=== PATIENT | female | born 1945 | race Caucasian/White ===

== ENCOUNTER 2021-11-04 15:57 | Observation (INO) ==
[2021-11-04 19:23] LABS: Basophils % 0.5 %; Eosinophils # 0.1 K/mcL (0.0-0.6); Eosinophils % 1.5 %; Hematocrit 42.5 % (35.3-44.9); Hemoglobin 14.4 g/dL (11.5-15.4); Immature Granulocytes % 0.2 % (0-4); Lymphocytes % 23.5 %; Mean Corpuscular HGB Conc 33.9 g/dL (31.6-35.5); Mean Corpuscular Hemoglobin 32.9 pg (28.0-33.3); Mean Platelet Volume 10.3 fL (9.4-12.4); Monocytes # 0.6 K/mcL (0.0-1.3); Monocytes % 7.3 %; Neutrophils # 5.7 K/mcL (1.6-8.9); Platelet Count 318 K/mcL (140-400); Red Blood Count 4.38 M/mcL (3.82-4.97); Red Cell Distribution Width 12.5 % (11.5-14.5); White Blood Count 8.5 K/mcL (4.3-11.1)
[2021-11-04 19:44] LABS: Calcium 10.2 mg/dL (8.6-10.3); Potassium 4.2 mEq/L (3.5-5.1)
[2021-11-04] MEDS ORDERED: Ketorolac 30 MG/ML VIAL IVP ONE (21:53)
[2021-11-04] MEDS ORDERED: 0.9 % Sodium Chloride 1,000 ML IVC ONE (22:52)
[2021-11-04] MEDS ORDERED: Iopamidol - 370 500 ML MLS IVP ONE (23:25)
[2021-11-05 02:49] LABS: Bacteria,Urine Few per hpf (None-Few); Bilirubin,Urine Negative (Negative); Blood,Urine Negative (Negative); Clarity,Urine Clear (Clear); Color,Urine Yellow (Yellow); Glucose,Urine (UA) Normal (Normal); Hyaline Casts,Urine Few per lpf (None Seen); Ketones,Urine Negative (Negative); Leukocyte Esterase,Urine Negative (Negative); Mucus,Urine Few per lpf (None-Few); Nitrite,Urine Positive (Negative); Protein,Urine Trace mg/dL (Neg-Trace); RBC,Urine 0-3 per hpf (0-3); Specific Gravity,Urine > 1.030 (1.010-1.025); Squamous Epithelial Cell,Urine Moderate per hpf (None-Few); Urobilinogen,Urine Normal (Normal)
[2021-11-05] MEDS ORDERED: Ondansetron 4 MG/2 ML VIAL IVP PRN (05:18)
[2021-11-05] MEDS ORDERED: Naloxone 0.4 MG/ML INJ IVP PRN (05:18)
[2021-11-05] MEDS: 0.9 % Sodium Chloride 1,000 ML IVC SCH ×2 (05:48→09:39)
[2021-11-05] MEDS ORDERED: Ketorolac 30 MG/ML VIAL IVP PRN (06:00)
[2021-11-05] MEDS ORDERED: Acetaminophen 325 MG TABLET PO PRN (11:35)
[2021-11-05] MEDS: Nicotine 14 MG PATCH.TD24 TD SCH (12:29)
[2021-11-05] MEDS: levoFLOXacin 750 MG/150 ML 750 MG/150 ML BAG IVPB SCH (17:12)
[2021-11-06 06:27] LABS: Adenovirus F 40/41 PCR Not detected (Not detect); Astrovirus PCR Not detected (Not detect); C.difficile Toxin A/B Gene PCR Not detected (Not detect); Campylobacter by PCR Not detected (Not detect); Cryptosporidium by PCR Not detected (Not detect); Cyclospora cayetanensis PCR Not detected (Not detect); E. coli O157 by PCR Not detected (Not detect); Entamoeba histolytica PCR Not detected (Not detect); Enteroaggregative E.coli(EAEC) Not detected (Not detect); Enteropathogenic E.coli(EPEC) Not detected (Not detect); Enterotoxigenic E.coli (ETEC) Not detected (Not detect); Giardia lamblia PCR Not detected (Not detect); Norovirus GI/GII PCR Not detected (Not detect); Plesiomonas shigelloides PCR Not detected (Not detect); Rotavirus A PCR Not detected (Not detect); Salmonella PCR Not detected (Not detect); Sapovirus PCR Not detected (Not detect); Shig/EnteroinvasiveE coli EIEC Not detected (Not detect); Shigalike tox-prod E coli STEC Not detected (Not detect); Vibrio PCR Not detected (Not detect); Vibrio cholerae PCR Not detected (Not detect); Yersinia enterocolitica PCR Not detected (Not detect)
[2021-11-06] MEDS ORDERED: *HR* Enoxaparin 40 MG/0.4 ML SYRINGE SQ SCH (07:00)
[2021-11-06] MEDS: Nicotine 14 MG PATCH.TD24 TD SCH (08:06)
[2021-11-06] MEDS: levoFLOXacin 750 MG/150 ML 750 MG/150 ML BAG IVPB SCH (08:07)
[2021-11-06 08:12] VITALS: BP 149/90; PULSE 88; TEMP 98.7; O2SAT 98
== END 2021-11-06 12:13 | disposition home or self-care (01) ==
LOC: EMEROOARM 15:57 → 3ANU 15:57 → SUATTDRO 11-05 05:46 → 3ANU 11-05 06:24
PROVIDERS: ADMIT Student in an Organized Health Care Education/Training Program; ATTEND Pharmacist

== ENCOUNTER 2021-11-21 14:16 | Inpatient (IN) ==
[2021-11-21 16:44] LABS: Basophils % 0.5 %; Eosinophils # 0.1 K/mcL (0.0-0.6); Eosinophils % 1.5 %; Hematocrit 39.3 % (35.3-44.9); Hemoglobin 12.9 g/dL (11.5-15.4); Immature Granulocytes % 0.2 % (0-4); Lymphocytes # 1.8 K/mcL (0.6-4.6); Mean Corpuscular HGB Conc 32.8 g/dL (31.6-35.5); Mean Corpuscular Hemoglobin 32.3 pg (28.0-33.3); Mean Corpuscular Volume 98.3 fL (83.0-100.0); Mean Platelet Volume 9.9 fL (9.4-12.4); Monocytes # 0.5 K/mcL (0.0-1.3); Neutrophils # 4.1 K/mcL (1.6-8.9); Platelet Count 376 K/mcL (140-400); Red Cell Distribution Width 12.7 % (11.5-14.5); Segmented Neutrophils % 62.8 %; White Blood Count 6.5 K/mcL (4.3-11.1)
[2021-11-21 16:45] LABS: Alanine Aminotransferase 6 Units/L (7-52); Albumin 3.6 g/dL (3.5-5.7); Albumin/Globulin Ratio 1.3 (1.1-2.2); Alkaline Phosphatase 99 Units/L (34-104); Amylase 20 Units/L (29-103); Aspartate Amino Transferase 10 Units/L (13-39); BUN/Creatinine Ratio 27 (6-26); Bilirubin,Direct 0.1 mg/dL (0.0-0.2); Bilirubin,Indirect 0.3 mg/dL (0.0-1.0); Bilirubin,Total 0.4 mg/dL (0.3-1.0); Blood Urea Nitrogen 16 mg/dL (8-23); Calcium 9.3 mg/dL (8.6-10.3); Carbon Dioxide 30 mEq/L (23-29); Chloride 103 mEq/L (98-107); Globulin 2.7 g/dL (2.4-3.5); Glucose 99 mg/dL (70-105); Lipase 16 Units/L (11-82); Osmolality,Calculated 285 (280-300); Potassium 3.8 mEq/L (3.5-5.1); Sodium 137 mEq/L (136-145); Total Protein 6.3 g/dL (6.4-8.9)
[2021-11-21 16:46] LABS: Bacteria,Urine Few per hpf (None-Few); Mucus,Urine Few per lpf (None-Few); RBC,Urine 0-3 per hpf (0-3); Squamous Epithelial Cell,Urine Few per hpf (None-Few); WBC,Urine 0-3 per hpf (0-3)
[2021-11-21 17:11] LABS: Bilirubin,Urine Negative (Negative); Blood,Urine Negative (Negative); Clarity,Urine Clear (Clear); Color,Urine Yellow (Yellow); Glucose,Urine (UA) Normal (Normal); Ketones,Urine Negative (Negative); Leukocyte Esterase,Urine Negative (Negative); Nitrite,Urine Negative (Negative); PH,Urine 5.5 pH Units (5.0-8.0); Protein,Urine Trace mg/dL (Neg-Trace); Specific Gravity,Urine 1.024 (1.010-1.025)
[2021-11-21] MEDS ORDERED: 0.9 % Sodium Chloride 1,000 ML IVC ONE (18:47)
[2021-11-21] MEDS ORDERED: Iopamidol - 370 500 ML MLS IVP ONE (18:47)
[2021-11-21] MEDS ORDERED: Ondansetron 4 MG/2 ML VIAL IVP ONE (18:57)
[2021-11-21] MEDS ORDERED: Piperacillin/Tazobactam 3.375 GM in 0.9 % Sodium Chloride Mini Bag 100 ML IVPB ONE (21:39)
[2021-11-21] MEDS ORDERED: *HR* FentaNYL (PF) 100 MCG/2 ML VIAL IVP ONE (21:40)
[2021-11-21] MEDS ORDERED: Acetaminophen 325 MG TABLET PO PRN (23:45)
[2021-11-21] MEDS ORDERED: Ondansetron 4 MG/2 ML VIAL IVP PRN (23:45)
[2021-11-21] MEDS ORDERED: Naloxone 0.4 MG/ML INJ IVP PRN (23:45)
[2021-11-22] MEDS: 0.9 % Sodium Chloride 1,000 ML IVC SCH (02:44)
[2021-11-22 03:11] LABS: Adenovirus F 40/41 PCR Not detected (Not detect); Astrovirus PCR Not detected (Not detect); C.difficile Toxin A/B Gene PCR Not detected (Not detect); Campylobacter by PCR Not detected (Not detect); Cryptosporidium by PCR Not detected (Not detect); Cyclospora cayetanensis PCR Not detected (Not detect); Entamoeba histolytica PCR Not detected (Not detect); Enteroaggregative E.coli(EAEC) Not detected (Not detect); Enteropathogenic E.coli(EPEC) Not detected (Not detect); Enterotoxigenic E.coli (ETEC) Not detected (Not detect); Giardia lamblia PCR Not detected (Not detect); Norovirus GI/GII PCR Not detected (Not detect); Plesiomonas shigelloides PCR Not detected (Not detect); Rotavirus A PCR Not detected (Not detect); Salmonella PCR Not detected (Not detect); Sapovirus PCR Not detected (Not detect); Shig/EnteroinvasiveE coli EIEC Not detected (Not detect); Shigalike tox-prod E coli STEC Not detected (Not detect); Vibrio PCR Not detected (Not detect); Vibrio cholerae PCR Not detected (Not detect); Yersinia enterocolitica PCR Not detected (Not detect)
[2021-11-22 05:32] LABS: Hematocrit 35.2 % (35.3-44.9); Hemoglobin 11.5 g/dL (11.5-15.4); Mean Corpuscular HGB Conc 32.7 g/dL (31.6-35.5); Mean Corpuscular Hemoglobin 31.7 pg (28.0-33.3); Mean Platelet Volume 9.4 fL (9.4-12.4); Platelet Count 325 K/mcL (140-400); Red Blood Count 3.63 M/mcL (3.82-4.97); Red Cell Distribution Width 12.7 % (11.5-14.5)
[2021-11-22 06:09] LABS: BUN/Creatinine Ratio 27 (6-26); Blood Urea Nitrogen 14 mg/dL (8-23); Calcium 8.9 mg/dL (8.6-10.3); Carbon Dioxide 26 mEq/L (23-29); Chloride 107 mEq/L (98-107); Glucose 89 mg/dL (70-105); Osmolality,Calculated 288 (280-300); Potassium 3.7 mEq/L (3.5-5.1); Sodium 139 mEq/L (136-145)
[2021-11-22] MEDS ORDERED: Piperacillin/Tazobactam 3.375 GM in 0.9 % Sodium Chloride Mini Bag 100 ML IVPB SCH (08:00)
[2021-11-22] MEDS ORDERED: *HR* Propofol 200 MG/20 ML VIAL IVP ONE ×2 (08:47→08:48)
[2021-11-22] MEDS ORDERED: *HR* FentaNYL (PF) 100 MCG/2 ML VIAL ONE (08:48)
[2021-11-22] MEDS ORDERED: Lidocaine HCL 4 ML Topical Solution (Laryng-O-Jet Kit Sterile Pak) TP ONE (08:52)
[2021-11-22] MEDS ORDERED: *HR* Rocuronium Bromide 50 MG/5 ML VIAL ONE ×3 (08:52→11:28)
[2021-11-22] MEDS ORDERED: Lidocaine -MPF 2% 5 ML VIAL ONE (08:52)
[2021-11-22] MEDS ORDERED: Ondansetron 4 MG/2 ML VIAL ONE (09:53)
[2021-11-22] MEDS ORDERED: Acetaminophen IV 1,000 MG/100 ML BAG IVPB ONE (09:54)
[2021-11-22] MEDS ORDERED: *HR* Labetalol 20 MG/4 ML SYRINGE IVP ONE ×2 (10:02→13:35)
[2021-11-22] MEDS ORDERED: Ketamine HCL *QUVA* 50mg (1mL) SYRINGE ONE (10:14)
[2021-11-22] MEDS ORDERED: *HR* HYDROMORPHONE 2 MG/ML VIAL ONE (12:02)
[2021-11-22] MEDS ORDERED: *HR* Nalbuphine 10 MG/ML AMPUL ONE (13:03)
[2021-11-22] MEDS: *HR* Labetalol 20 MG/4 ML SYRINGE IVP PRN ×3 (13:37→16:49)
[2021-11-22] MEDS ORDERED: Acetaminophen 325 MG TABLET PO PRN (14:43)
[2021-11-22] MEDS ORDERED: Naloxone 0.4 MG/ML INJ IVP PRN (14:43)
[2021-11-22] MEDS ORDERED: 0.9 % Sodium Chloride 1,000 ML IVC SCH (14:43)
[2021-11-22] MEDS: Piperacillin/Tazobactam 3.375 GM in 0.9 % Sodium Chloride Mini Bag 100 ML IVPB SCH (16:31)
[2021-11-22] MEDS: Acetaminophen IV 1,000 MG/100 ML BAG IVPB SCH (18:11)
[2021-11-22] MEDS: *HR* HYDROmorphone (PF) 1 MG/ML SYRINGE IVP PRN (20:21)
[2021-11-23] MEDS: Piperacillin/Tazobactam 3.375 GM in 0.9 % Sodium Chloride Mini Bag 100 ML IVPB SCH ×3 (00:19→15:21)
[2021-11-23] MEDS: Acetaminophen IV 1,000 MG/100 ML BAG IVPB SCH ×4 (00:19→17:12)
[2021-11-23] MEDS: *HR* Labetalol 20 MG/4 ML SYRINGE IVP PRN (01:57)
[2021-11-23 04:36] LABS: Basophils % 0.1 %; Hematocrit 35.3 % (35.3-44.9); Hemoglobin 11.8 g/dL (11.5-15.4); Immature Granulocytes % 0.1 % (0-4); Lymphocytes # 0.7 K/mcL (0.6-4.6); Lymphocytes % 7.2 %; Mean Corpuscular HGB Conc 33.4 g/dL (31.6-35.5); Mean Corpuscular Hemoglobin 32.1 pg (28.0-33.3); Mean Corpuscular Volume 95.9 fL (83.0-100.0); Mean Platelet Volume 9.6 fL (9.4-12.4); Monocytes # 0.5 K/mcL (0.0-1.3); Monocytes % 4.7 %; Platelet Count 326 K/mcL (140-400); Red Blood Count 3.68 M/mcL (3.82-4.97); Red Cell Distribution Width 12.5 % (11.5-14.5); Segmented Neutrophils % 87.9 %
[2021-11-23 04:37] LABS: White Blood Count 10.2 K/mcL (4.3-11.1)
[2021-11-23 04:58] LABS: BUN/Creatinine Ratio 24 (6-26); Blood Urea Nitrogen 12 mg/dL (8-23); Calcium 7.8 mg/dL (8.6-10.3); Carbon Dioxide 23 mEq/L (23-29); Chloride 105 mEq/L (98-107); Glucose 132 mg/dL (70-105); Osmolality,Calculated 292 (280-300); Potassium 3.5 mEq/L (3.5-5.1); Sodium 140 mEq/L (136-145)
[2021-11-23] MEDS: Ondansetron 4 MG/2 ML VIAL IVP PRN ×2 (06:29→16:42)
[2021-11-23] MEDS: *HR* HYDROmorphone (PF) 1 MG/ML SYRINGE IVP PRN ×4 (06:30→16:28)
[2021-11-23] MEDS ORDERED: D5% in Water 1,000 ML IVC PRN (06:56)
[2021-11-23] MEDS ORDERED: *HR* Dextrose 50 % in Water (Syg) 50 ML SYRINGE IVP PRN (06:56)
[2021-11-23] MEDS ORDERED: Dextrose Gel 15 GM/37.5 ML TUBE PO PRN ×2 (06:56)
[2021-11-23] MEDS ORDERED: Lidocaine -MPF 1% 5 ML AMPUL INFILT ONE (06:56)
[2021-11-23] MEDS ORDERED: Saliva Stimulant 44.3ml BOTTLE PO PRN (06:58)
[2021-11-23] MEDS ORDERED: Chloraseptic Spray 177 ML BOTTLE MM PRN (06:58)
[2021-11-23] MEDS ORDERED: 0.9 % Sodium Chloride 1,000 ML IVC SCH (07:00)
[2021-11-23] MEDS: 0.9 % Sodium Chloride 1,000 ML IVC SCH ×3 (07:36→17:14)
[2021-11-23] MEDS: Insulin LISPRO 300 UNITS/3 ML VIAL SUBQ SCH ×4 (07:43→20:13)
[2021-11-23 07:50] LABS: INR 1.3; Prothrombin Time 14.5 Seconds (9.4-12.1)
[2021-11-23 07:52] LABS: Activated Partial Thrombo Time 29.5 Seconds (26.0-36.0)
[2021-11-23 08:01] LABS: Magnesium 1.5 mg/dL (1.6-2.6); Phosphorous 3.2 mg/dL (2.7-4.5)
[2021-11-23] MEDS: Calcium Gluconate 1gm/50mL 1 GM/50 ML BAG IVPB SCH ×2 (08:32→09:13)
[2021-11-23] MEDS: *HR* Heparin 5,000 UNIT/ML VIAL SQ SCH ×2 (10:11→17:13)
[2021-11-23] MEDS: Pantoprazole 40 MG VIAL IVP SCH (10:12)
[2021-11-23] MEDS ORDERED: D10% in Water 500 ML IVC PRN (10:49)
[2021-11-23] MEDS: Ketorolac 30 MG/ML VIAL IVP SCH ×2 (12:42→17:14)
[2021-11-23] MEDS: Nicotine 21 MG PATCH.TD24 TD SCH (15:21)
[2021-11-23] MEDS: Fat Emulsion 250 ML IVPB SCH (16:29)
[2021-11-23] MEDS ORDERED: Clinimix E 5%-15% SOLUTION 2,000 ML with MVI, adult with vitamin K 10 ML IVC SCH (17:00)
[2021-11-23] MEDS ORDERED: *HR* Metoprolol 5 MG/5 ML VIAL IVP ONE (22:09)
[2021-11-24] MEDS: Ketorolac 30 MG/ML VIAL IVP SCH ×5 (00:17→23:30)
[2021-11-24] MEDS: Acetaminophen IV 1,000 MG/100 ML BAG IVPB SCH ×5 (00:26→23:40)
[2021-11-24] MEDS: Piperacillin/Tazobactam 3.375 GM in 0.9 % Sodium Chloride Mini Bag 100 ML IVPB SCH ×4 (00:47→23:39)
[2021-11-24] MEDS: Insulin LISPRO 300 UNITS/3 ML VIAL SUBQ SCH ×6 (00:49→20:53)
[2021-11-24] MEDS: 0.9 % Sodium Chloride 1,000 ML IVC SCH (02:28)
[2021-11-24] MEDS: *HR* Heparin 5,000 UNIT/ML VIAL SQ SCH ×2 (06:20→17:35)
[2021-11-24] MEDS: Ondansetron 4 MG/2 ML VIAL IVP PRN ×2 (06:29→16:37)
[2021-11-24 06:59] LABS: Basophils % 0.1 %; Hematocrit 32.8 % (35.3-44.9); Hemoglobin 10.8 g/dL (11.5-15.4); Immature Granulocytes % 0.8 % (0-4); Lymphocytes # 1.2 K/mcL (0.6-4.6); Lymphocytes % 8.1 %; Mean Corpuscular HGB Conc 32.9 g/dL (31.6-35.5); Mean Corpuscular Hemoglobin 32.2 pg (28.0-33.3); Mean Corpuscular Volume 97.9 fL (83.0-100.0); Mean Platelet Volume 10.2 fL (9.4-12.4); Monocytes # 0.7 K/mcL (0.0-1.3); Monocytes % 4.6 %; Neutrophils # 12.3 K/mcL (1.6-8.9); Platelet Count 331 K/mcL (140-400); Red Blood Count 3.35 M/mcL (3.82-4.97); Red Cell Distribution Width 12.9 % (11.5-14.5); Segmented Neutrophils % 86.4 %; White Blood Count 14.2 K/mcL (4.3-11.1)
[2021-11-24 07:18] LABS: Alanine Aminotransferase 10 Units/L (7-52); Albumin 2.6 g/dL (3.5-5.7); Albumin/Globulin Ratio 1.1 (1.1-2.2); Alkaline Phosphatase 69 Units/L (34-104); Aspartate Amino Transferase 17 Units/L (13-39); BUN/Creatinine Ratio 38 (6-26); Bilirubin,Total 0.9 mg/dL (0.3-1.0); Blood Urea Nitrogen 18 mg/dL (8-23); Calcium 8.8 mg/dL (8.6-10.3); Carbon Dioxide 26 mEq/L (23-29); Chloride 104 mEq/L (98-107); Globulin 2.3 g/dL (2.4-3.5); Glucose 118 mg/dL (70-105); Magnesium 1.8 mg/dL (1.6-2.6); Osmolality,Calculated 279 (280-300); Potassium 3.5 mEq/L (3.5-5.1); Sodium 133 mEq/L (136-145); Total Protein 4.9 g/dL (6.4-8.9)
[2021-11-24] MEDS ORDERED: SODIUM PHOSPHATE IVPB ONE ×2 (07:25→07:47)
[2021-11-24] MEDS ORDERED: SODIUM CHLORIDE 0.9% IVPB ONE ×2 (07:25→07:47)
[2021-11-24] MEDS: *HR* Metoprolol 5 MG/5 ML VIAL IVP SCH ×4 (08:31→23:31)
[2021-11-24] MEDS ORDERED: Furosemide 40 MG/4 ML VIAL IVP ONE (08:33)
[2021-11-24] MEDS: Pantoprazole 40 MG VIAL IVP SCH (08:33)
[2021-11-24] MEDS: Nicotine 21 MG PATCH.TD24 TD SCH (08:33)
[2021-11-24] MEDS ORDERED: Fluconazole 400 MG/200 ML 400 MG/200 ML BAG IVPB ONE (08:57)
[2021-11-24] MEDS ORDERED: Clinimix E 5%-15% SOLUTION 2,000 ML with MVI, adult with vitamin K 10 ML IVC SCH (17:00)
[2021-11-24] MEDS: Fat Emulsion 250 ML IVPB SCH (18:07)
[2021-11-25 03:42] LABS: Basophils % 0.1 %; Eosinophils % 0.4 %; Hematocrit 24.8 % (35.3-44.9); Immature Granulocytes % 0.4 % (0-4); Lymphocytes # 1.1 K/mcL (0.6-4.6); Lymphocytes % 9.5 %; Mean Corpuscular HGB Conc 33.9 g/dL (31.6-35.5); Mean Corpuscular Hemoglobin 32.8 pg (28.0-33.3); Mean Corpuscular Volume 96.9 fL (83.0-100.0); Mean Platelet Volume 10.3 fL (9.4-12.4); Monocytes # 0.4 K/mcL (0.0-1.3); Monocytes % 3.6 %; Neutrophils # 9.6 K/mcL (1.6-8.9); Platelet Count 243 K/mcL (140-400); Red Blood Count 2.56 M/mcL (3.82-4.97); Red Cell Distribution Width 13.1 % (11.5-14.5); White Blood Count 11.2 K/mcL (4.3-11.1)
[2021-11-25 03:46] LABS: Hemoglobin 8.4 g/dL (11.5-15.4)
[2021-11-25 04:12] LABS: Alanine Aminotransferase 9 Units/L (7-52); Albumin 2.3 g/dL (3.5-5.7); Albumin/Globulin Ratio 1.1 (1.1-2.2); Alkaline Phosphatase 58 Units/L (34-104); Aspartate Amino Transferase 13 Units/L (13-39); BUN/Creatinine Ratio 50 (6-26); Bilirubin,Total 0.8 mg/dL (0.3-1.0); Blood Urea Nitrogen 24 mg/dL (8-23); Calcium 8.5 mg/dL (8.6-10.3); Carbon Dioxide 28 mEq/L (23-29); Chloride 105 mEq/L (98-107); Globulin 2.1 g/dL (2.4-3.5); Glucose 125 mg/dL (70-105); Magnesium 1.8 mg/dL (1.6-2.6); Osmolality,Calculated 290 (280-300); Phosphorous 2.4 mg/dL (2.7-4.5); Potassium 2.9 mEq/L (3.5-5.1); Sodium 137 mEq/L (136-145); Total Protein 4.4 g/dL (6.4-8.9)
[2021-11-25] MEDS: Insulin LISPRO 300 UNITS/3 ML VIAL SUBQ SCH ×6 (04:15→20:21)
[2021-11-25] MEDS: Acetaminophen IV 1,000 MG/100 ML BAG IVPB SCH ×3 (06:23→18:34)
[2021-11-25] MEDS: Ketorolac 30 MG/ML VIAL IVP SCH ×3 (06:24→18:35)
[2021-11-25] MEDS: *HR* Metoprolol 5 MG/5 ML VIAL IVP SCH ×3 (06:25→18:34)
[2021-11-25] MEDS: *HR* Heparin 5,000 UNIT/ML VIAL SQ SCH ×2 (06:25→18:33)
[2021-11-25] MEDS: Calcium Gluconate 1gm/50mL 1 GM/50 ML BAG IVPB SCH ×3 (08:20→13:11)
[2021-11-25] MEDS: Fluconazole 200 MG/100 ML 200 MG/100 ML BAG IVPB SCH (10:54)
[2021-11-25] MEDS ORDERED: Calcium Gluconate 1gm/50mL 1 GM/50 ML BAG IVPB SCH (11:00)
[2021-11-25] MEDS: Pantoprazole 40 MG VIAL IVP SCH (11:09)
[2021-11-25] MEDS: Piperacillin/Tazobactam 3.375 GM in 0.9 % Sodium Chloride Mini Bag 100 ML IVPB SCH ×2 (11:10→18:05)
[2021-11-25] MEDS: Nicotine 21 MG PATCH.TD24 TD SCH (11:11)
[2021-11-25] MEDS: Gabapentin 100 MG CAPSULE PO SCH ×3 (11:12→21:22)
[2021-11-25] MEDS ORDERED: Clinimix E 5%-15% SOLUTION 2,000 ML with MVI, adult with vitamin K 10 ML IVC SCH (17:00)
[2021-11-25] MEDS ORDERED: Clinimix E 5%-20% SOLUTION 2,000 ML, Amino Acids 10% 0 ML with MVI, adult with vitami... IVC SCH (17:00)
[2021-11-25] MEDS: Fat Emulsion 250 ML IVPB SCH (17:04)
[2021-11-25] MEDS: Ondansetron 4 MG/2 ML VIAL IVP PRN (17:23)
[2021-11-25 18:26] LABS: Hemoglobin 8.3 g/dL (11.5-15.4)
[2021-11-26] MEDS: Ketorolac 30 MG/ML VIAL IVP SCH ×3 (00:23→11:20)
[2021-11-26] MEDS: *HR* Metoprolol 5 MG/5 ML VIAL IVP SCH ×4 (00:24→18:02)
[2021-11-26] MEDS: Insulin LISPRO 300 UNITS/3 ML VIAL SUBQ SCH ×5 (00:25→17:41)
[2021-11-26] MEDS: Piperacillin/Tazobactam 3.375 GM in 0.9 % Sodium Chloride Mini Bag 100 ML IVPB SCH ×3 (00:25→17:39)
[2021-11-26] MEDS: Acetaminophen IV 1,000 MG/100 ML BAG IVPB SCH ×4 (01:01→18:34)
[2021-11-26 04:11] LABS: Basophils % 0.3 %; Eosinophils # 0.5 K/mcL (0.0-0.6); Eosinophils % 5.2 %; Hematocrit 24.4 % (35.3-44.9); Hemoglobin 7.9 g/dL (11.5-15.4); Immature Granulocytes % 0.5 % (0-4); Lymphocytes # 1.2 K/mcL (0.6-4.6); Lymphocytes % 11.9 %; Mean Corpuscular HGB Conc 32.4 g/dL (31.6-35.5); Mean Corpuscular Hemoglobin 31.9 pg (28.0-33.3); Mean Corpuscular Volume 98.4 fL (83.0-100.0); Mean Platelet Volume 10.1 fL (9.4-12.4); Monocytes # 0.6 K/mcL (0.0-1.3); Monocytes % 5.4 %; Neutrophils # 7.8 K/mcL (1.6-8.9); Platelet Count 248 K/mcL (140-400); Red Blood Count 2.48 M/mcL (3.82-4.97); Red Cell Distribution Width 13.2 % (11.5-14.5); Segmented Neutrophils % 76.7 %; White Blood Count 10.2 K/mcL (4.3-11.1)
[2021-11-26 04:30] LABS: Alanine Aminotransferase 8 Units/L (7-52); Albumin 2.2 g/dL (3.5-5.7); Alkaline Phosphatase 64 Units/L (34-104); Aspartate Amino Transferase 11 Units/L (13-39); BUN/Creatinine Ratio 51 (6-26); Bilirubin,Total 0.7 mg/dL (0.3-1.0); Blood Urea Nitrogen 24 mg/dL (8-23); Calcium 8.8 mg/dL (8.6-10.3); Carbon Dioxide 30 mEq/L (23-29); Chloride 103 mEq/L (98-107); Globulin 2.3 g/dL (2.4-3.5); Glucose 106 mg/dL (70-105); Magnesium 1.8 mg/dL (1.6-2.6); Osmolality,Calculated 286 (280-300); Phosphorous 2.5 mg/dL (2.7-4.5); Potassium 3.2 mEq/L (3.5-5.1); Sodium 136 mEq/L (136-145); Total Protein 4.5 g/dL (6.4-8.9)
[2021-11-26] MEDS: *HR* Heparin 5,000 UNIT/ML VIAL SQ SCH ×2 (05:15→17:59)
[2021-11-26] MEDS: Pantoprazole 40 MG VIAL IVP SCH (07:52)
[2021-11-26] MEDS: Gabapentin 100 MG CAPSULE PO SCH ×3 (07:53→20:35)
[2021-11-26] MEDS: Nicotine 21 MG PATCH.TD24 TD SCH (09:11)
[2021-11-26] MEDS: Fluconazole 200 MG/100 ML 200 MG/100 ML BAG IVPB SCH (09:14)
[2021-11-26] MEDS ORDERED: Potassium Phosphate 44 MEQ in 0.9 % Sodium Chloride 250 ML IVPB ONE (10:41)
[2021-11-26] MEDS ORDERED: Clinimix E 5%-20% SOLUTION 2,000 ML, Amino Acids 10% 0 ML with MVI, adult with vitami... IVC SCH (17:00)
[2021-11-26] MEDS ORDERED: Clinimix E 5%-15% SOLUTION 2,000 ML with MVI, adult with vitamin K 10 ML IVC SCH (17:00)
[2021-11-26] MEDS: Fat Emulsion 250 ML IVPB SCH (17:44)
[2021-11-26 18:53] LABS: Ferritin 139 ng/mL (10-120); Iron < 10 mcg/dL (50-170); Transferrin 120 mg/dL (203-362)
[2021-11-26 19:00] LABS: Folate > 22.3 ng/mL (3.0-16.0); Vitamin B12 534 pg/mL (250-1100)
[2021-11-27] MEDS: Insulin LISPRO 300 UNITS/3 ML VIAL SUBQ SCH ×8 (00:41→23:49)
[2021-11-27] MEDS: Acetaminophen IV 1,000 MG/100 ML BAG IVPB SCH ×2 (01:08→11:57)
[2021-11-27] MEDS: Piperacillin/Tazobactam 3.375 GM in 0.9 % Sodium Chloride Mini Bag 100 ML IVPB SCH ×4 (01:09→23:55)
[2021-11-27] MEDS: *HR* Metoprolol 5 MG/5 ML VIAL IVP SCH ×5 (01:14→23:50)
[2021-11-27 05:47] LABS: Basophils % 0.3 %; Eosinophils # 0.3 K/mcL (0.0-0.6); Eosinophils % 4.2 %; Hematocrit 26.1 % (35.3-44.9); Hemoglobin 8.2 g/dL (11.5-15.4); Immature Granulocytes % 0.6 % (0-4); Lymphocytes # 0.9 K/mcL (0.6-4.6); Mean Corpuscular HGB Conc 31.4 g/dL (31.6-35.5); Mean Corpuscular Hemoglobin 31.1 pg (28.0-33.3); Mean Corpuscular Volume 98.9 fL (83.0-100.0); Mean Platelet Volume 9.9 fL (9.4-12.4); Monocytes # 0.5 K/mcL (0.0-1.3); Monocytes % 6.7 %; Neutrophils # 5.4 K/mcL (1.6-8.9); Platelet Count 258 K/mcL (140-400); Red Blood Count 2.64 M/mcL (3.82-4.97); Red Cell Distribution Width 13.1 % (11.5-14.5); Segmented Neutrophils % 75.2 %; White Blood Count 7.2 K/mcL (4.3-11.1)
[2021-11-27 06:03] LABS: BUN/Creatinine Ratio 49 (6-26); Blood Urea Nitrogen 19 mg/dL (8-23); Calcium 8.8 mg/dL (8.6-10.3); Carbon Dioxide 30 mEq/L (23-29); Chloride 103 mEq/L (98-107); Glucose 130 mg/dL (70-105); Magnesium 1.8 mg/dL (1.6-2.6); Osmolality,Calculated 284 (280-300); Phosphorous 2.9 mg/dL (2.7-4.5); Potassium 3.6 mEq/L (3.5-5.1); Sodium 135 mEq/L (136-145)
[2021-11-27 06:04] LABS: Alanine Aminotransferase 9 Units/L (7-52); Albumin 2.4 g/dL (3.5-5.7); Albumin/Globulin Ratio 0.9 (1.1-2.2); Alkaline Phosphatase 105 Units/L (34-104); Aspartate Amino Transferase 13 Units/L (13-39); BUN/Creatinine Ratio 49 (6-26); Bilirubin,Total 0.6 mg/dL (0.3-1.0); Blood Urea Nitrogen 19 mg/dL (8-23); Calcium 8.8 mg/dL (8.6-10.3); Carbon Dioxide 29 mEq/L (23-29); Chloride 103 mEq/L (98-107); Globulin 2.6 g/dL (2.4-3.5); Glucose 126 mg/dL (70-105); Osmolality,Calculated 284 (280-300); Potassium 3.7 mEq/L (3.5-5.1); Sodium 135 mEq/L (136-145)
[2021-11-27] MEDS: *HR* Heparin 5,000 UNIT/ML VIAL SQ SCH ×2 (06:46→18:07)
[2021-11-27] MEDS ORDERED: Acetaminophen 325 MG TABLET PO PRN (08:14)
[2021-11-27] MEDS: Gabapentin 100 MG CAPSULE PO SCH ×3 (09:06→21:29)
[2021-11-27] MEDS: Pantoprazole 40 MG VIAL IVP SCH (09:07)
[2021-11-27] MEDS: Nicotine 21 MG PATCH.TD24 TD SCH (09:09)
[2021-11-27] MEDS: Fluconazole 200 MG/100 ML 200 MG/100 ML BAG IVPB SCH (09:52)
[2021-11-27] MEDS: *HR* Promethazine 25 MG/ML VIAL IM PRN (10:17)
[2021-11-27] MEDS ORDERED: *HR* Metoprolol 5 MG/5 ML VIAL IVP ONE (13:00)
[2021-11-27] MEDS: Ondansetron 4 MG/2 ML VIAL IVP PRN (14:39)
[2021-11-27] MEDS: Fat Emulsion 250 ML IVPB SCH (16:55)
[2021-11-27] MEDS ORDERED: Clinimix E 5%-15% SOLUTION 2,000 ML with MVI, adult with vitamin K 10 ML IVC SCH (17:00)
[2021-11-27] MEDS ORDERED: Clinimix E 5%-20% SOLUTION 2,000 ML, Amino Acids 10% 0 ML with MVI, adult with vitami... IVC SCH (17:00)
[2021-11-28] MEDS: *HR* Promethazine 25 MG/ML VIAL IM PRN (02:01)
[2021-11-28] MEDS: *HR* Metoprolol 5 MG/5 ML VIAL IVP SCH (05:42)
[2021-11-28] MEDS: Insulin LISPRO 300 UNITS/3 ML VIAL SUBQ SCH ×5 (05:42→20:30)
[2021-11-28] MEDS: *HR* Heparin 5,000 UNIT/ML VIAL SQ SCH ×2 (05:42→17:43)
[2021-11-28 06:43] LABS: Basophils % 0.2 %; Eosinophils # 0.2 K/mcL (0.0-0.6); Eosinophils % 2.4 %; Hematocrit 25.9 % (35.3-44.9); Hemoglobin 8.3 g/dL (11.5-15.4); Immature Granulocytes % 1.4 % (0-4); Lymphocytes # 1.3 K/mcL (0.6-4.6); Lymphocytes % 15.5 %; Mean Corpuscular Hemoglobin 31.7 pg (28.0-33.3); Mean Corpuscular Volume 98.9 fL (83.0-100.0); Mean Platelet Volume 10.7 fL (9.4-12.4); Monocytes # 0.8 K/mcL (0.0-1.3); Monocytes % 9.6 %; Neutrophils # 5.9 K/mcL (1.6-8.9); Platelet Count 285 K/mcL (140-400); Red Blood Count 2.62 M/mcL (3.82-4.97); Segmented Neutrophils % 70.9 %; White Blood Count 8.3 K/mcL (4.3-11.1)
[2021-11-28 07:07] LABS: Alanine Aminotransferase 10 Units/L (7-52); Albumin 2.4 g/dL (3.5-5.7); Albumin/Globulin Ratio 0.9 (1.1-2.2); Alkaline Phosphatase 103 Units/L (34-104); Aspartate Amino Transferase 12 Units/L (13-39); BUN/Creatinine Ratio 40 (6-26); Bilirubin,Total 0.5 mg/dL (0.3-1.0); Blood Urea Nitrogen 17 mg/dL (8-23); Calcium 9.2 mg/dL (8.6-10.3); Carbon Dioxide 30 mEq/L (23-29); Chloride 102 mEq/L (98-107); Globulin 2.7 g/dL (2.4-3.5); Glucose 130 mg/dL (70-105); Osmolality,Calculated 285 (280-300); Potassium 3.4 mEq/L (3.5-5.1); Sodium 136 mEq/L (136-145); Total Protein 5.1 g/dL (6.4-8.9)
[2021-11-28] MEDS ORDERED: Furosemide 40 MG/4 ML VIAL IVP ONE (07:42)
[2021-11-28] MEDS: Piperacillin/Tazobactam 3.375 GM in 0.9 % Sodium Chloride Mini Bag 100 ML IVPB SCH ×2 (08:07→17:51)
[2021-11-28] MEDS: Gabapentin 100 MG CAPSULE PO SCH ×3 (08:09→20:30)
[2021-11-28] MEDS: Nicotine 21 MG PATCH.TD24 TD SCH (08:09)
[2021-11-28] MEDS: Pantoprazole 40 MG VIAL IVP SCH (08:10)
[2021-11-28] MEDS ORDERED: *HR* Metoprolol 5 MG/5 ML VIAL IVP PRN (08:30)
[2021-11-28] MEDS: Fluconazole 200 MG/100 ML 200 MG/100 ML BAG IVPB SCH (09:17)
[2021-11-28] MEDS: carvediloL 6.25 MG TABLET PO SCH ×2 (09:30→17:43)
[2021-11-28] MEDS ORDERED: GI Cocktail 40 ML EACH PO ONE (10:34)
[2021-11-28 11:12] LABS: Magnesium 2.3 mg/dL (1.6-2.6); Phosphorous 8.5 mg/dL (2.7-4.5)
[2021-11-28] MEDS: Ondansetron 4 MG/2 ML VIAL IVP PRN (12:08)
[2021-11-28] MEDS ORDERED: Metoclopramide 10 MG/2 ML VIAL IVP ONE (15:44)
[2021-11-28] MEDS ORDERED: Clinimix E 5%-15% SOLUTION 2,000 ML with MVI, adult with vitamin K 10 ML IVC SCH (17:00)
[2021-11-28] MEDS: Doxycycline 100 MG in 0.9 % Sodium Chloride Mini Bag 100 ML IVPB SCH (17:52)
[2021-11-28] MEDS: Fat Emulsion 250 ML IVPB SCH (17:52)
[2021-11-28] MEDS: Metoclopramide 10 MG/2 ML VIAL IVP SCH (20:31)
[2021-11-29] MEDS: Insulin LISPRO 300 UNITS/3 ML VIAL SUBQ SCH ×6 (00:06→22:44)
[2021-11-29] MEDS: Piperacillin/Tazobactam 3.375 GM in 0.9 % Sodium Chloride Mini Bag 100 ML IVPB SCH (00:17)
[2021-11-29] MEDS: Metoclopramide 10 MG/2 ML VIAL IVP SCH ×3 (01:40→12:13)
[2021-11-29] MEDS: Doxycycline 100 MG in 0.9 % Sodium Chloride Mini Bag 100 ML IVPB SCH ×2 (05:21→18:03)
[2021-11-29] MEDS: *HR* Heparin 5,000 UNIT/ML VIAL SQ SCH ×2 (05:22→18:02)
[2021-11-29 06:16] LABS: Basophils % 0.2 %; Eosinophils # 0.2 K/mcL (0.0-0.6); Eosinophils % 1.9 %; Hematocrit 26.3 % (35.3-44.9); Hemoglobin 8.5 g/dL (11.5-15.4); Immature Granulocytes % 1.5 % (0-4); Lymphocytes # 1.3 K/mcL (0.6-4.6); Lymphocytes % 10.4 %; Mean Corpuscular HGB Conc 32.3 g/dL (31.6-35.5); Mean Corpuscular Hemoglobin 31.5 pg (28.0-33.3); Mean Corpuscular Volume 97.4 fL (83.0-100.0); Mean Platelet Volume 10.5 fL (9.4-12.4); Monocytes # 0.9 K/mcL (0.0-1.3); Monocytes % 7.6 %; Neutrophils # 9.7 K/mcL (1.6-8.9); Nucleated Red Blood Cells 0.2 /100 WBC (0); Platelet Count 354 K/mcL (140-400); Red Cell Distribution Width 12.9 % (11.5-14.5); Segmented Neutrophils % 78.4 %; White Blood Count 12.4 K/mcL (4.3-11.1)
[2021-11-29 06:33] LABS: Alanine Aminotransferase 10 Units/L (7-52); Albumin 2.6 g/dL (3.5-5.7); Albumin/Globulin Ratio 0.9 (1.1-2.2); Alkaline Phosphatase 106 Units/L (34-104); Aspartate Amino Transferase 13 Units/L (13-39); BUN/Creatinine Ratio 50 (6-26); Bilirubin,Total 0.5 mg/dL (0.3-1.0); Blood Urea Nitrogen 18 mg/dL (8-23); Calcium 9.4 mg/dL (8.6-10.3); Carbon Dioxide 29 mEq/L (23-29); Chloride 100 mEq/L (98-107); Globulin 2.8 g/dL (2.4-3.5); Glucose 117 mg/dL (70-105); Magnesium 1.9 mg/dL (1.6-2.6); Osmolality,Calculated 281 (280-300); Potassium 3.9 mEq/L (3.5-5.1); Sodium 134 mEq/L (136-145); Total Protein 5.4 g/dL (6.4-8.9)
[2021-11-29] MEDS ORDERED: Cefepime HCl 2,000 MG in 0.9 % Sodium Chloride Mini Bag 100 ML IVPB SCH (07:36)
[2021-11-29] MEDS: Ondansetron 4 MG/2 ML VIAL IVP PRN (09:05)
[2021-11-29] MEDS: Fluconazole 200 MG/100 ML 200 MG/100 ML BAG IVPB SCH (09:06)
[2021-11-29] MEDS: Gabapentin 100 MG CAPSULE PO SCH ×3 (09:06→19:49)
[2021-11-29] MEDS: Furosemide 40 MG/4 ML VIAL IVP SCH (09:06)
[2021-11-29] MEDS: Nicotine 21 MG PATCH.TD24 TD SCH (09:08)
[2021-11-29] MEDS: MetroNIDAZOLE 500 MG/100 ML 500 MG/100 ML BAG IVPB SCH ×2 (09:09→15:57)
[2021-11-29] MEDS: carvediloL 6.25 MG TABLET PO SCH ×2 (09:10→18:02)
[2021-11-29] MEDS: Mag Hydrox/Al Hydrox/Simeth 30 ML UDC PO PRN ×2 (10:25→18:03)
[2021-11-29] MEDS: Metoclopramide 20 MG in 0.9 % Sodium Chloride 50 ML IVPB SCH ×2 (14:03→22:32)
[2021-11-29] MEDS: Sucralfate 1 GM TABLET PO SCH ×3 (14:05→22:33)
[2021-11-29] MEDS: Cefepime HCl 2,000 MG in 0.9 % Sodium Chloride Mini Bag 100 ML IVPB SCH (15:57)
[2021-11-29] MEDS ORDERED: Clinimix E 5%-15% SOLUTION 2,000 ML with MVI, adult with vitamin K 10 ML IVC SCH (17:00)
[2021-11-29] MEDS: Pantoprazole 40 MG VIAL IVP SCH (18:02)
[2021-11-29] MEDS: Fat Emulsion 250 ML IVPB SCH (18:02)
[2021-11-29] MEDS: Lactobacillus 1 EACH CAP.SPRINK PO SCH (19:49)
[2021-11-30] MEDS: Cefepime HCl 2,000 MG in 0.9 % Sodium Chloride Mini Bag 100 ML IVPB SCH ×4 (00:30→23:33)
[2021-11-30] MEDS: MetroNIDAZOLE 500 MG/100 ML 500 MG/100 ML BAG IVPB SCH ×4 (01:23→23:32)
[2021-11-30] MEDS: Insulin LISPRO 300 UNITS/3 ML VIAL SUBQ SCH ×6 (01:49→21:14)
[2021-11-30 03:05] LABS: Basophils % 0.3 %; Eosinophils # 0.4 K/mcL (0.0-0.6); Eosinophils % 3.9 %; Hematocrit 24.1 % (35.3-44.9); Hemoglobin 7.8 g/dL (11.5-15.4); Immature Granulocytes % 3.2 % (0-4); Lymphocytes # 1.3 K/mcL (0.6-4.6); Lymphocytes % 13.9 %; Mean Corpuscular HGB Conc 32.4 g/dL (31.6-35.5); Mean Corpuscular Hemoglobin 31.7 pg (28.0-33.3); Mean Platelet Volume 10.3 fL (9.4-12.4); Monocytes # 0.8 K/mcL (0.0-1.3); Neutrophils # 6.4 K/mcL (1.6-8.9); Nucleated Red Blood Cells 0.2 /100 WBC (0); Platelet Count 435 K/mcL (140-400); Red Blood Count 2.46 M/mcL (3.82-4.97); Segmented Neutrophils % 69.7 %; White Blood Count 9.1 K/mcL (4.3-11.1)
[2021-11-30 03:32] LABS: Alanine Aminotransferase 9 Units/L (7-52); Albumin 2.4 g/dL (3.5-5.7); Albumin/Globulin Ratio 0.8 (1.1-2.2); Alkaline Phosphatase 94 Units/L (34-104); Aspartate Amino Transferase 11 Units/L (13-39); BUN/Creatinine Ratio 50 (6-26); Bilirubin,Total 0.4 mg/dL (0.3-1.0); Blood Urea Nitrogen 21 mg/dL (8-23); Carbon Dioxide 26 mEq/L (23-29); Chloride 102 mEq/L (98-107); Globulin 2.9 g/dL (2.4-3.5); Glucose 139 mg/dL (70-105); Magnesium 1.9 mg/dL (1.6-2.6); Osmolality,Calculated 281 (280-300); Phosphorous 3.5 mg/dL (2.7-4.5); Potassium 4.1 mEq/L (3.5-5.1); Sodium 133 mEq/L (136-145); Total Protein 5.3 g/dL (6.4-8.9)
[2021-11-30] MEDS: Metoclopramide 20 MG in 0.9 % Sodium Chloride 50 ML IVPB SCH ×2 (04:51→13:09)
[2021-11-30] MEDS: Doxycycline 100 MG in 0.9 % Sodium Chloride Mini Bag 100 ML IVPB SCH ×2 (05:43→17:35)
[2021-11-30] MEDS: Pantoprazole 40 MG VIAL IVP SCH ×2 (05:47→17:34)
[2021-11-30] MEDS: *HR* Heparin 5,000 UNIT/ML VIAL SQ SCH ×2 (05:47→17:34)
[2021-11-30] MEDS: Gabapentin 100 MG CAPSULE PO SCH ×3 (08:22→20:20)
[2021-11-30] MEDS: Sucralfate 1 GM TABLET PO SCH ×4 (08:22→20:20)
[2021-11-30] MEDS: carvediloL 6.25 MG TABLET PO SCH ×2 (08:22→17:35)
[2021-11-30] MEDS: Lactobacillus 1 EACH CAP.SPRINK PO SCH ×2 (08:22→20:20)
[2021-11-30] MEDS: Fluconazole 400 MG/200 ML 400 MG/200 ML BAG IVPB SCH (08:23)
[2021-11-30] MEDS: Furosemide 40 MG/4 ML VIAL IVP SCH (08:23)
[2021-11-30] MEDS: Nicotine 21 MG PATCH.TD24 TD SCH (08:23)
[2021-11-30] MEDS: Mag Hydrox/Al Hydrox/Simeth 30 ML UDC PO PRN (11:11)
[2021-11-30] MEDS ORDERED: Iron Sucrose Complex 200 MG in 0.9 % Sodium Chloride 100 ML IVPB ONE (11:52)
[2021-11-30] MEDS ORDERED: Cyanocobalamin (B-12) 1,000 MCG/ML VIAL SQ ONE (11:52)
[2021-12-01] MEDS: Insulin LISPRO 300 UNITS/3 ML VIAL SUBQ SCH ×4 (01:08→12:48)
[2021-12-01 02:53] LABS: Basophils % 0.3 %; Eosinophils # 0.2 K/mcL (0.0-0.6); Eosinophils % 1.7 %; Hematocrit 24.2 % (35.3-44.9); Hemoglobin 7.8 g/dL (11.5-15.4); Immature Granulocytes % 3.4 % (0-4); Lymphocytes # 1.4 K/mcL (0.6-4.6); Lymphocytes % 12.9 %; Mean Corpuscular HGB Conc 32.2 g/dL (31.6-35.5); Mean Corpuscular Hemoglobin 31.6 pg (28.0-33.3); Mean Platelet Volume 10.4 fL (9.4-12.4); Monocytes % 9.4 %; Neutrophils # 7.6 K/mcL (1.6-8.9); Nucleated Red Blood Cells 0.2 /100 WBC (0); Platelet Count 497 K/mcL (140-400); Red Blood Count 2.47 M/mcL (3.82-4.97); Red Cell Distribution Width 13.2 % (11.5-14.5); Segmented Neutrophils % 72.3 %; White Blood Count 10.5 K/mcL (4.3-11.1)
[2021-12-01 02:58] LABS: BUN/Creatinine Ratio 47 (6-26); Blood Urea Nitrogen 22 mg/dL (8-23); Calcium 9.1 mg/dL (8.6-10.3); Carbon Dioxide 28 mEq/L (23-29); Chloride 99 mEq/L (98-107); Glucose 102 mg/dL (70-105); Magnesium 2.1 mg/dL (1.6-2.6); Osmolality,Calculated 276 (280-300); Potassium 4.1 mEq/L (3.5-5.1); Sodium 131 mEq/L (136-145)
[2021-12-01] MEDS: Doxycycline 100 MG in 0.9 % Sodium Chloride Mini Bag 100 ML IVPB SCH (05:47)
[2021-12-01] MEDS: *HR* Heparin 5,000 UNIT/ML VIAL SQ SCH ×2 (05:48→17:27)
[2021-12-01] MEDS: Pantoprazole 40 MG VIAL IVP SCH (05:48)
[2021-12-01] MEDS: Furosemide 40 MG/4 ML VIAL IVP SCH (08:21)
[2021-12-01] MEDS: Nicotine 21 MG PATCH.TD24 TD SCH (08:21)
[2021-12-01] MEDS: carvediloL 6.25 MG TABLET PO SCH ×2 (08:21→17:27)
[2021-12-01] MEDS: Gabapentin 100 MG CAPSULE PO SCH ×3 (08:21→21:30)
[2021-12-01] MEDS: Sucralfate 1 GM TABLET PO SCH ×4 (08:21→21:30)
[2021-12-01] MEDS: Lactobacillus 1 EACH CAP.SPRINK PO SCH ×2 (08:21→21:30)
[2021-12-01] MEDS: Cefepime HCl 2,000 MG in 0.9 % Sodium Chloride Mini Bag 100 ML IVPB SCH ×2 (08:22→16:15)
[2021-12-01] MEDS: MetroNIDAZOLE 500 MG/100 ML 500 MG/100 ML BAG IVPB SCH ×2 (08:23→16:15)
[2021-12-01] MEDS: Fluconazole 400 MG/200 ML 400 MG/200 ML BAG IVPB SCH (08:23)
[2021-12-02] MEDS: Cefepime HCl 2,000 MG in 0.9 % Sodium Chloride Mini Bag 100 ML IVPB SCH ×4 (00:08→23:57)
[2021-12-02] MEDS: MetroNIDAZOLE 500 MG/100 ML 500 MG/100 ML BAG IVPB SCH ×3 (00:53→16:06)
[2021-12-02] MEDS: *HR* Heparin 5,000 UNIT/ML VIAL SQ SCH ×2 (06:07→17:23)
[2021-12-02] MEDS: Sucralfate 1 GM TABLET PO SCH ×4 (07:43→20:43)
[2021-12-02] MEDS: carvediloL 6.25 MG TABLET PO SCH ×2 (07:43→16:08)
[2021-12-02] MEDS: Nicotine 21 MG PATCH.TD24 TD SCH (09:53)
[2021-12-02] MEDS: Lactobacillus 1 EACH CAP.SPRINK PO SCH ×2 (09:55→20:43)
[2021-12-02] MEDS: Gabapentin 100 MG CAPSULE PO SCH ×3 (09:55→20:43)
[2021-12-02] MEDS: Furosemide 40 MG/4 ML VIAL IVP SCH (09:55)
[2021-12-02] MEDS: Fluconazole 400 MG/200 ML 400 MG/200 ML BAG IVPB SCH (09:56)
[2021-12-02] MEDS: Pantoprazole 40 MG VIAL IVP SCH (09:56)
[2021-12-02 13:45] LABS: Basophils % 0.3 %; Eosinophils # 0.1 K/mcL (0.0-0.6); Eosinophils % 0.8 %; Hematocrit 26.1 % (35.3-44.9); Hemoglobin 8.4 g/dL (11.5-15.4); Immature Granulocytes % 1.9 % (0-4); Lymphocytes % 8.2 %; Mean Corpuscular HGB Conc 32.2 g/dL (31.6-35.5); Mean Corpuscular Hemoglobin 32.3 pg (28.0-33.3); Mean Corpuscular Volume 100.4 fL (83.0-100.0); Mean Platelet Volume 10.2 fL (9.4-12.4); Monocytes # 0.8 K/mcL (0.0-1.3); Monocytes % 6.8 %; Neutrophils # 10.2 K/mcL (1.6-8.9); Nucleated Red Blood Cells 0.2 /100 WBC (0); Platelet Count 613 K/mcL (140-400); Red Cell Distribution Width 14.8 % (11.5-14.5); White Blood Count 12.4 K/mcL (4.3-11.1)
[2021-12-02 13:53] LABS: BUN/Creatinine Ratio 34 (6-26); Blood Urea Nitrogen 22 mg/dL (8-23); Calcium 8.9 mg/dL (8.6-10.3); Carbon Dioxide 28 mEq/L (23-29); Chloride 102 mEq/L (98-107); Glucose 121 mg/dL (70-105); Magnesium 2.1 mg/dL (1.6-2.6); Osmolality,Calculated 287 (280-300); Potassium 3.8 mEq/L (3.5-5.1); Sodium 136 mEq/L (136-145)
[2021-12-03] MEDS: MetroNIDAZOLE 500 MG/100 ML 500 MG/100 ML BAG IVPB SCH ×2 (00:36→08:57)
[2021-12-03] MEDS: *HR* Heparin 5,000 UNIT/ML VIAL SQ SCH (06:21)
[2021-12-03] MEDS: Furosemide 40 MG/4 ML VIAL IVP SCH (08:55)
[2021-12-03] MEDS: carvediloL 6.25 MG TABLET PO SCH (08:55)
[2021-12-03] MEDS: Nicotine 21 MG PATCH.TD24 TD SCH (08:55)
[2021-12-03] MEDS: Sucralfate 1 GM TABLET PO SCH ×2 (08:55→11:45)
[2021-12-03] MEDS: Lactobacillus 1 EACH CAP.SPRINK PO SCH (08:55)
[2021-12-03] MEDS: Pantoprazole 40 MG VIAL IVP SCH (08:55)
[2021-12-03] MEDS: Cefepime HCl 2,000 MG in 0.9 % Sodium Chloride Mini Bag 100 ML IVPB SCH (08:55)
[2021-12-03] MEDS: Gabapentin 100 MG CAPSULE PO SCH (08:55)
[2021-12-03] MEDS: Fluconazole 400 MG/200 ML 400 MG/200 ML BAG IVPB SCH (08:57)
[2021-12-03] MEDS: Ondansetron 4 MG/2 ML VIAL IVP PRN (09:15)
[2021-12-03 11:57] VITALS: BP 122/74; PULSE 84; TEMP 97.8
[2021-12-03] MEDS ORDERED: Flu Vac QV 22-23 (6MOS UP)/PF 0.5 ML SYRINGE IM ONE (12:39)
[2021-12-03 13:45] VITALS: O2SAT 94
[2021-12-03] MEDS ORDERED: Cefepime HCl 2,000 MG in 0.9 % Sodium Chloride Mini Bag 100 ML IVPB SCH (18:00)
== END 2021-12-03 14:25 | disposition home health service (06) | DRG 907 ==
LOC: EMEROOARM 14:16 → 2ANU 14:16 → SUATTDRO 23:37 → 2ANU 11-22 01:00 → SUATTDRO 11-22 11:08
PROVIDERS: ADMIT Student in an Organized Health Care Education/Training Program; ATTEND Pharmacist

== ENCOUNTER 2021-12-09 12:34 | Inpatient (IN) ==
[2021-12-09] MEDS ORDERED: Iopamidol - 370 500 ML MLS IVP ONE (12:57)
[2021-12-09] MEDS ORDERED: Morphine Sulfate 2 MG/ML SYRINGE IVP ONE (12:58)
[2021-12-09] MEDS ORDERED: Ondansetron 4 MG/2 ML VIAL IVP PRN ×2 (12:58→17:38)
[2021-12-09 13:15] LABS: Basophils % 0.3 %; Eosinophils # 0.1 K/mcL (0.0-0.6); Eosinophils % 1.2 %; Hematocrit 29.8 % (35.3-44.9); Hemoglobin 9.2 g/dL (11.5-15.4); Immature Granulocytes % 0.4 % (0-4); Lymphocytes # 0.9 K/mcL (0.6-4.6); Lymphocytes % 12.6 %; Mean Corpuscular HGB Conc 30.9 g/dL (31.6-35.5); Mean Corpuscular Hemoglobin 32.1 pg (28.0-33.3); Mean Corpuscular Volume 103.8 fL (83.0-100.0); Mean Platelet Volume 9.7 fL (9.4-12.4); Monocytes # 0.7 K/mcL (0.0-1.3); Monocytes % 9.5 %; Neutrophils # 5.5 K/mcL (1.6-8.9); Platelet Count 616 K/mcL (140-400); Red Blood Count 2.87 M/mcL (3.82-4.97); Red Cell Distribution Width 16.8 % (11.5-14.5); White Blood Count 7.3 K/mcL (4.3-11.1)
[2021-12-09 13:32] LABS: Alanine Aminotransferase 9 Units/L (7-52); Albumin 2.9 g/dL (3.5-5.7); Albumin/Globulin Ratio 0.8 (1.1-2.2); Alkaline Phosphatase 112 Units/L (34-104); Aspartate Amino Transferase 11 Units/L (13-39); BUN/Creatinine Ratio 40 (6-26); Bilirubin,Direct 0.2 mg/dL (0.0-0.2); Bilirubin,Indirect 0.6 mg/dL (0.0-1.0); Bilirubin,Total 0.8 mg/dL (0.3-1.0); Blood Urea Nitrogen 19 mg/dL (8-23); Calcium 9.1 mg/dL (8.6-10.3); Carbon Dioxide 32 mEq/L (23-29); Chloride 105 mEq/L (98-107); Globulin 3.5 g/dL (2.4-3.5); Glucose 101 mg/dL (70-105); Lipase 15 Units/L (11-82); Osmolality,Calculated 288 (280-300); Potassium 3.3 mEq/L (3.5-5.1); Sodium 138 mEq/L (136-145); Total Protein 6.4 g/dL (6.4-8.9); Troponin I 0.03 ng/mL (< 0.04)
[2021-12-09 13:46] LABS: Bilirubin,Urine Negative (Negative); Blood,Urine Negative (Negative); Clarity,Urine Clear (Clear); Color,Urine Yellow (Yellow); Glucose,Urine (UA) Normal (Normal); Ketones,Urine Negative (Negative); Leukocyte Esterase,Urine Negative (Negative); Mucus,Urine Few per lpf (None-Few); Nitrite,Urine Negative (Negative); Protein,Urine 30 mg/dL (Neg-Trace); RBC,Urine 0-3 per hpf (0-3); Specific Gravity,Urine 1.021 (1.010-1.025); Squamous Epithelial Cell,Urine Few per hpf (None-Few); Urobilinogen,Urine Normal (Normal)
[2021-12-09 13:46] LABS: INR 1.4; Prothrombin Time 15.7 Seconds (9.4-12.1)
[2021-12-09 13:48] LABS: Activated Partial Thrombo Time 30.3 Seconds (26.0-36.0)
[2021-12-09] MEDS ORDERED: Piperacillin/Tazobactam 3.375 GM in 0.9 % Sodium Chloride Mini Bag 100 ML IVPB ONE (15:42)
[2021-12-09] MEDS ORDERED: Naloxone 0.4 MG/ML INJ IVP PRN (17:38)
[2021-12-09] MEDS ORDERED: Melatonin 3 MG TABLET PO PRN (17:38)
[2021-12-09] MEDS ORDERED: Acetaminophen 325 MG TABLET PO PRN (17:38)
[2021-12-09] MEDS ORDERED: Cefepime HCl 2,000 MG in 0.9 % Sodium Chloride Mini Bag 100 ML IVPB SCH (18:00)
[2021-12-09 19:58] LABS: Hematocrit 28.9 % (35.3-44.9); Hemoglobin 8.9 g/dL (11.5-15.4)
[2021-12-09] MEDS: Fluconazole 200 MG/100 ML 200 MG/100 ML BAG IVPB SCH (20:39)
[2021-12-10] MEDS: Piperacillin/Tazobactam 3.375 GM in 0.9 % Sodium Chloride Mini Bag 100 ML IVPB SCH ×4 (00:14→23:14)
[2021-12-10 04:20] LABS: Basophils # 0.1 K/mcL (0.0-0.2); Basophils % 0.8 %; Eosinophils # 0.2 K/mcL (0.0-0.6); Eosinophils # 0.3 K/mcL (0.0-0.6); Eosinophils % 2.9 %; Eosinophils % 3.1 %; Hematocrit 31.3 % (35.3-44.9); Hemoglobin 9.4 g/dL (11.5-15.4); Immature Granulocytes % 0.2 % (0-4); Immature Granulocytes % 0.4 % (0-4); Lymphocytes # 0.9 K/mcL (0.6-4.6); Lymphocytes % 11.7 %; Lymphocytes % 11.8 %; Mean Corpuscular HGB Conc 30.3 g/dL (31.6-35.5); Mean Corpuscular Hemoglobin 31.8 pg (28.0-33.3); Mean Corpuscular Hemoglobin 32.1 pg (28.0-33.3); Mean Corpuscular Volume 105.7 fL (83.0-100.0); Mean Corpuscular Volume 105.8 fL (83.0-100.0); Mean Platelet Volume 9.8 fL (9.4-12.4); Monocytes # 0.7 K/mcL (0.0-1.3); Monocytes % 8.1 %; Monocytes % 8.2 %; Neutrophils # 6.1 K/mcL (1.6-8.9); Platelet Count 588 K/mcL (140-400); Platelet Count 593 K/mcL (140-400); Red Blood Count 2.93 M/mcL (3.82-4.97); Red Blood Count 2.96 M/mcL (3.82-4.97); Red Cell Distribution Width 16.8 % (11.5-14.5); Red Cell Distribution Width 17.1 % (11.5-14.5); Segmented Neutrophils % 75.8 %
[2021-12-10 04:26] LABS: INR 1.4; Prothrombin Time 15.2 Seconds (9.4-12.1); Prothrombin Time 15.3 Seconds (9.4-12.1)
[2021-12-10 04:31] LABS: Alanine Aminotransferase 8 Units/L (7-52); Albumin 2.9 g/dL (3.5-5.7); Albumin/Globulin Ratio 0.9 (1.1-2.2); Alkaline Phosphatase 114 Units/L (34-104); Aspartate Amino Transferase 10 Units/L (13-39); BUN/Creatinine Ratio 35 (6-26); BUN/Creatinine Ratio 39 (6-26); Bilirubin,Total 0.9 mg/dL (0.3-1.0); Blood Urea Nitrogen 17 mg/dL (8-23); Calcium 9.2 mg/dL (8.6-10.3); Carbon Dioxide 29 mEq/L (23-29); Carbon Dioxide 30 mEq/L (23-29); Chloride 103 mEq/L (98-107); Globulin 3.4 g/dL (2.4-3.5); Glucose 91 mg/dL (70-105); Glucose 92 mg/dL (70-105); Magnesium 2.2 mg/dL (1.6-2.6); Osmolality,Calculated 291 (280-300); Osmolality,Calculated 295 (280-300); Potassium 4.1 mEq/L (3.5-5.1); Sodium 140 mEq/L (136-145); Sodium 142 mEq/L (136-145); Total Protein 6.3 g/dL (6.4-8.9)
[2021-12-10] MEDS ORDERED: Cefepime HCl 2,000 MG in 0.9 % Sodium Chloride Mini Bag 100 ML IVPB SCH (06:00)
[2021-12-10] MEDS ORDERED: *HR* Propofol 200 MG/20 ML VIAL IVP ONE ×2 (14:24→19:33)
[2021-12-10] MEDS ORDERED: *HR* FentaNYL (PF) 100 MCG/2 ML VIAL ONE (14:24)
[2021-12-10] MEDS ORDERED: Lidocaine HCL 4 ML Topical Solution (Laryng-O-Jet Kit Sterile Pak) TP ONE (14:25)
[2021-12-10] MEDS ORDERED: *HR* Rocuronium Bromide 50 MG/5 ML VIAL ONE ×2 (14:25→18:18)
[2021-12-10] MEDS ORDERED: Ondansetron 4 MG/2 ML VIAL ONE (14:25)
[2021-12-10] MEDS ORDERED: Lidocaine -MPF 2% 2 ML VIAL ONE (14:25)
[2021-12-10] MEDS ORDERED: *HR* Phenylephrine 10 MG/ML VIAL ONE (14:32)
[2021-12-10] MEDS ORDERED: Sugammadex Sodium 200 MG/2 ML VIAL IV ONE (15:25)
[2021-12-10] MEDS ORDERED: Ipratropium/Albuterol Neb 3 ML IH ONE (15:37)
[2021-12-10] MEDS ORDERED: Naloxone 0.4 MG/ML INJ IVP PRN (15:37)
[2021-12-10] MEDS ORDERED: Ondansetron 4 MG/2 ML VIAL IVP PRN (15:37)
[2021-12-10] MEDS ORDERED: Nitroglycerin 0.4 MG TAB.SUBL SL PRN (15:37)
[2021-12-10] MEDS ORDERED: *HR* HYDROmorphone PF 0.5 MG/0.5 ML SYRINGE IVP PRN (15:37)
[2021-12-10] MEDS ORDERED: *HR* Labetalol 20 MG/4 ML SYRINGE IVP ONE (17:03)
[2021-12-10] MEDS ORDERED: *HR* HYDROMORPHONE 2 MG/ML VIAL ONE (17:21)
[2021-12-10] MEDS ORDERED: Famotidine 20 MG/2 ML VIAL ONE (19:20)
[2021-12-10] MEDS ORDERED: *HR* Labetalol 20 MG/4 ML SYRINGE IVP PRN (20:45)
[2021-12-10] MEDS: Fluconazole 200 MG/100 ML 200 MG/100 ML BAG IVPB SCH (20:58)
[2021-12-10] MEDS ORDERED: D5% in Water 1,000 ML IVC PRN (21:12)
[2021-12-10] MEDS ORDERED: *HR* Dextrose 50 % in Water (Syg) 50 ML SYRINGE IVP PRN (21:12)
[2021-12-10] MEDS ORDERED: Dextrose Gel 15 GM/37.5 ML TUBE PO PRN ×2 (21:12)
[2021-12-10] MEDS: Ipratropium/Albuterol Neb 3 ML IH SCH ×2 (21:58→23:58)
[2021-12-10] MEDS: Pantoprazole 40 MG in 0.9 % Sodium Chloride Mini Bag 100 ML IVC SCH (23:14)
[2021-12-10] MEDS: Insulin LISPRO 300 UNITS/3 ML VIAL SUBQ SCH (23:40)
[2021-12-11] MEDS: *HR* FentaNYL (PF) 100 MCG/2 ML VIAL IVP PRN ×3 (03:30→14:22)
[2021-12-11] MEDS: Pantoprazole 40 MG in 0.9 % Sodium Chloride Mini Bag 100 ML IVC SCH ×4 (03:40→19:54)
[2021-12-11] MEDS: Ipratropium/Albuterol Neb 3 ML IH SCH ×6 (03:44→23:40)
[2021-12-11 04:58] LABS: Hematocrit 30.3 % (35.3-44.9); Hemoglobin 9.2 g/dL (11.5-15.4); Mean Corpuscular HGB Conc 30.4 g/dL (31.6-35.5); Mean Corpuscular Hemoglobin 31.7 pg (28.0-33.3); Mean Corpuscular Volume 104.5 fL (83.0-100.0); Mean Platelet Volume 9.8 fL (9.4-12.4); Platelet Count 598 K/mcL (140-400); Red Cell Distribution Width 17.1 % (11.5-14.5); White Blood Count 9.3 K/mcL (4.3-11.1)
[2021-12-11] MEDS: Insulin LISPRO 300 UNITS/3 ML VIAL SUBQ SCH ×4 (05:10→18:43)
[2021-12-11 05:19] LABS: BUN/Creatinine Ratio 35 (6-26); Blood Urea Nitrogen 19 mg/dL (8-23); Calcium 8.6 mg/dL (8.6-10.3); Carbon Dioxide 27 mEq/L (23-29); Chloride 105 mEq/L (98-107); Glucose 152 mg/dL (70-105); Osmolality,Calculated 293 (280-300); Potassium 4.1 mEq/L (3.5-5.1); Sodium 139 mEq/L (136-145)
[2021-12-11] MEDS: Piperacillin/Tazobactam 3.375 GM in 0.9 % Sodium Chloride Mini Bag 100 ML IVPB SCH ×2 (08:08→14:23)
[2021-12-11] MEDS: Fluconazole 400 MG/200 ML 400 MG/200 ML BAG IVPB SCH (10:31)
[2021-12-11 10:41] LABS: Albumin 2.6 g/dL (3.5-5.7); Bilirubin,Direct 0.1 mg/dL (0.0-0.2); Bilirubin,Indirect 0.4 mg/dL (0.0-1.0); Bilirubin,Total 0.5 mg/dL (0.3-1.0)
[2021-12-11 12:20] LABS: Phosphorous 3.3 mg/dL (2.7-4.5)
[2021-12-11 12:24] LABS: Albumin/Globulin Ratio 0.8 (1.1-2.2); Globulin 3.1 g/dL (2.4-3.5); Total Protein 5.7 g/dL (6.4-8.9)
[2021-12-12] MEDS: Insulin LISPRO 300 UNITS/3 ML VIAL SUBQ SCH ×8 (00:45→23:11)
[2021-12-12] MEDS: Pantoprazole 40 MG in 0.9 % Sodium Chloride Mini Bag 100 ML IVC SCH ×3 (00:46→12:59)
[2021-12-12] MEDS: Piperacillin/Tazobactam 3.375 GM in 0.9 % Sodium Chloride Mini Bag 100 ML IVPB SCH ×4 (00:46→23:10)
[2021-12-12] MEDS: Ipratropium/Albuterol Neb 3 ML IH SCH ×6 (03:25→23:15)
[2021-12-12] MEDS: Octreotide 400 MCG in 0.9 % Sodium Chloride 100 ML IVC SCH ×2 (08:54→16:52)
[2021-12-12] MEDS: Fluconazole 400 MG/200 ML 400 MG/200 ML BAG IVPB SCH (08:54)
[2021-12-12 09:30] LABS: Basophils % 0.2 %; Eosinophils % 0.1 %; Hematocrit 26.1 % (35.3-44.9); Hemoglobin 7.9 g/dL (11.5-15.4); Immature Granulocytes % 1.2 % (0-4); Lymphocytes # 0.8 K/mcL (0.6-4.6); Lymphocytes % 8.7 %; Mean Corpuscular HGB Conc 30.3 g/dL (31.6-35.5); Mean Corpuscular Hemoglobin 32.1 pg (28.0-33.3); Mean Corpuscular Volume 106.1 fL (83.0-100.0); Mean Platelet Volume 9.7 fL (9.4-12.4); Monocytes # 0.8 K/mcL (0.0-1.3); Monocytes % 8.8 %; Platelet Count 503 K/mcL (140-400); Red Blood Count 2.46 M/mcL (3.82-4.97); Red Cell Distribution Width 17.8 % (11.5-14.5); White Blood Count 8.7 K/mcL (4.3-11.1)
[2021-12-12 09:48] LABS: Alanine Aminotransferase 76 Units/L (7-52); Albumin 2.6 g/dL (3.5-5.7); Albumin/Globulin Ratio 0.9 (1.1-2.2); Alkaline Phosphatase 88 Units/L (34-104); Aspartate Amino Transferase 72 Units/L (13-39); BUN/Creatinine Ratio 26 (6-26); Bilirubin,Total 0.4 mg/dL (0.3-1.0); Blood Urea Nitrogen 18 mg/dL (8-23); Calcium 8.5 mg/dL (8.6-10.3); Carbon Dioxide 28 mEq/L (23-29); Chloride 110 mEq/L (98-107); Glucose 113 mg/dL (70-105); Osmolality,Calculated 301 (280-300); Potassium 3.6 mEq/L (3.5-5.1); Sodium 144 mEq/L (136-145); Total Protein 5.6 g/dL (6.4-8.9)
[2021-12-12] MEDS ORDERED: *HR* HYDROmorphone (PF) 1 MG/ML SYRINGE IVP PRN (10:40)
[2021-12-12 13:43] LABS: Magnesium 2.1 mg/dL (1.6-2.6); Phosphorous 3.3 mg/dL (2.7-4.5)
[2021-12-12] MEDS ORDERED: D10% in Water 500 ML IVC PRN (13:48)
[2021-12-12] MEDS: Fat Emulsion 250 ML IVPB SCH (16:37)
[2021-12-12] MEDS ORDERED: Clinimix E 5%-15% SOLUTION 2,000 ML with MVI, adult with vitamin K 10 ML IVC SCH (17:00)
[2021-12-12] MEDS ORDERED: Ipratropium/Albuterol Neb 3 ML IH PRN (23:40)
[2021-12-13] MEDS: Octreotide 400 MCG in 0.9 % Sodium Chloride 100 ML IVC SCH ×3 (01:11→22:31)
[2021-12-13 04:22] LABS: Basophils # 0.1 K/mcL (0.0-0.2); Basophils % 0.8 %; Eosinophils # 0.2 K/mcL (0.0-0.6); Eosinophils % 2.2 %; Hematocrit 24.9 % (35.3-44.9); Hemoglobin 7.3 g/dL (11.5-15.4); Immature Granulocytes % 1.2 % (0-4); Lymphocytes % 13.3 %; Mean Corpuscular HGB Conc 29.3 g/dL (31.6-35.5); Mean Corpuscular Hemoglobin 31.3 pg (28.0-33.3); Mean Corpuscular Volume 106.9 fL (83.0-100.0); Mean Platelet Volume 10.2 fL (9.4-12.4); Monocytes # 0.7 K/mcL (0.0-1.3); Neutrophils # 5.3 K/mcL (1.6-8.9); Platelet Count 481 K/mcL (140-400); Red Blood Count 2.33 M/mcL (3.82-4.97); Red Cell Distribution Width 17.4 % (11.5-14.5); Segmented Neutrophils % 72.5 %; White Blood Count 7.3 K/mcL (4.3-11.1)
[2021-12-13 04:43] LABS: Alanine Aminotransferase 54 Units/L (7-52); Albumin 2.5 g/dL (3.5-5.7); Albumin/Globulin Ratio 0.9 (1.1-2.2); Alkaline Phosphatase 84 Units/L (34-104); Aspartate Amino Transferase 33 Units/L (13-39); BUN/Creatinine Ratio 22 (6-26); Bilirubin,Total 0.4 mg/dL (0.3-1.0); Blood Urea Nitrogen 15 mg/dL (8-23); Calcium 8.4 mg/dL (8.6-10.3); Carbon Dioxide 31 mEq/L (23-29); Chloride 106 mEq/L (98-107); Globulin 2.8 g/dL (2.4-3.5); Glucose 182 mg/dL (70-105); Osmolality,Calculated 303 (280-300); Phosphorous 2.5 mg/dL (2.7-4.5); Potassium 3.3 mEq/L (3.5-5.1); Sodium 144 mEq/L (136-145); Total Protein 5.3 g/dL (6.4-8.9)
[2021-12-13] MEDS: Insulin LISPRO 300 UNITS/3 ML VIAL SUBQ SCH ×5 (05:40→20:11)
[2021-12-13] MEDS: Piperacillin/Tazobactam 3.375 GM in 0.9 % Sodium Chloride Mini Bag 100 ML IVPB SCH ×2 (08:10→18:15)
[2021-12-13] MEDS: Fluconazole 400 MG/200 ML 400 MG/200 ML BAG IVPB SCH (08:11)
[2021-12-13] MEDS ORDERED: Ondansetron 4 MG/2 ML VIAL IVP PRN (12:47)
[2021-12-13] MEDS: Pantoprazole 40 MG VIAL IVP SCH (13:04)
[2021-12-13] MEDS: *HR* Metoprolol 5 MG/5 ML VIAL IVP SCH ×2 (14:51→18:16)
[2021-12-13] MEDS: Acetaminophen IV 1,000 MG/100 ML BAG IVPB SCH ×2 (14:52→18:16)
[2021-12-13] MEDS ORDERED: Clinimix E 5%-15% SOLUTION 2,000 ML with MVI, adult with vitamin K 10 ML IVC SCH (17:00)
[2021-12-13] MEDS: Ketorolac 30 MG/ML VIAL IVP SCH (18:16)
[2021-12-13] MEDS: Fat Emulsion 250 ML IVPB SCH (18:17)
[2021-12-14] MEDS: Insulin LISPRO 300 UNITS/3 ML VIAL SUBQ SCH ×7 (00:09→23:44)
[2021-12-14] MEDS: Piperacillin/Tazobactam 3.375 GM in 0.9 % Sodium Chloride Mini Bag 100 ML IVPB SCH ×3 (00:23→16:24)
[2021-12-14] MEDS: Acetaminophen IV 1,000 MG/100 ML BAG IVPB SCH ×5 (00:24→23:51)
[2021-12-14] MEDS: Ketorolac 30 MG/ML VIAL IVP SCH ×5 (00:25→23:52)
[2021-12-14] MEDS: *HR* Metoprolol 5 MG/5 ML VIAL IVP SCH ×5 (00:25→23:57)
[2021-12-14 02:02] LABS: Basophils # 0.1 K/mcL (0.0-0.2); Eosinophils # 0.6 K/mcL (0.0-0.6); Eosinophils % 7.7 %; Hematocrit 25.3 % (35.3-44.9); Hemoglobin 7.6 g/dL (11.5-15.4); Immature Granulocytes % 1.4 % (0-4); Lymphocytes # 1.6 K/mcL (0.6-4.6); Lymphocytes % 21.8 %; Mean Corpuscular Hemoglobin 31.8 pg (28.0-33.3); Mean Corpuscular Volume 105.9 fL (83.0-100.0); Mean Platelet Volume 9.7 fL (9.4-12.4); Monocytes # 0.6 K/mcL (0.0-1.3); Neutrophils # 4.3 K/mcL (1.6-8.9); Platelet Count 463 K/mcL (140-400); Red Blood Count 2.39 M/mcL (3.82-4.97); Red Cell Distribution Width 16.6 % (11.5-14.5); Segmented Neutrophils % 60.1 %; White Blood Count 7.1 K/mcL (4.3-11.1)
[2021-12-14 04:10] LABS: Magnesium 1.9 mg/dL (1.6-2.6); Phosphorous 2.8 mg/dL (2.7-4.5)
[2021-12-14 04:57] LABS: Alanine Aminotransferase 37 Units/L (7-52); Albumin 2.5 g/dL (3.5-5.7); Albumin/Globulin Ratio 0.9 (1.1-2.2); Alkaline Phosphatase 78 Units/L (34-104); Aspartate Amino Transferase 20 Units/L (13-39); BUN/Creatinine Ratio 22 (6-26); Bilirubin,Total 0.4 mg/dL (0.3-1.0); Blood Urea Nitrogen 13 mg/dL (8-23); Calcium 8.1 mg/dL (8.6-10.3); Carbon Dioxide 30 mEq/L (23-29); Chloride 103 mEq/L (98-107); Globulin 2.7 g/dL (2.4-3.5); Glucose 147 mg/dL (70-105); Osmolality,Calculated 287 (280-300); Potassium 3.7 mEq/L (3.5-5.1); Sodium 137 mEq/L (136-145); Total Protein 5.2 g/dL (6.4-8.9)
[2021-12-14] MEDS ORDERED: Iopamidol - 370 500 ML MLS IVP ONE (08:41)
[2021-12-14] MEDS: Fluconazole 400 MG/200 ML 400 MG/200 ML BAG IVPB SCH (08:46)
[2021-12-14] MEDS: Pantoprazole 40 MG VIAL IVP SCH (08:47)
[2021-12-14] MEDS: Nicotine 14 MG PATCH.TD24 TD SCH (09:10)
[2021-12-14] MEDS ORDERED: *HR* HYDROmorphone (PF) 1 MG/ML SYRINGE IVP PRN (11:15)
[2021-12-14] MEDS ORDERED: Clinimix E 5%-15% SOLUTION 2,000 ML with MVI, adult with vitamin K 10 ML IVC SCH (17:00)
[2021-12-14] MEDS: Fat Emulsion 250 ML IVPB SCH (17:20)
[2021-12-15] MEDS: Piperacillin/Tazobactam 3.375 GM in 0.9 % Sodium Chloride Mini Bag 100 ML IVPB SCH ×3 (00:48→16:17)
[2021-12-15] MEDS: Insulin LISPRO 300 UNITS/3 ML VIAL SUBQ SCH ×4 (05:57→16:10)
[2021-12-15] MEDS: Ketorolac 30 MG/ML VIAL IVP SCH ×3 (06:41→18:13)
[2021-12-15] MEDS: *HR* Metoprolol 5 MG/5 ML VIAL IVP SCH ×3 (06:41→18:12)
[2021-12-15] MEDS: Acetaminophen IV 1,000 MG/100 ML BAG IVPB SCH ×3 (06:41→17:14)
[2021-12-15] MEDS: Fluconazole 400 MG/200 ML 400 MG/200 ML BAG IVPB SCH (08:35)
[2021-12-15] MEDS: Nicotine 14 MG PATCH.TD24 TD SCH (08:37)
[2021-12-15] MEDS: Pantoprazole 40 MG VIAL IVP SCH (08:37)
[2021-12-15 16:13] LABS: Alanine Aminotransferase 20 Units/L (7-52); Albumin 2.5 g/dL (3.5-5.7); Alkaline Phosphatase 74 Units/L (34-104); Aspartate Amino Transferase 11 Units/L (13-39); BUN/Creatinine Ratio 48 (6-26); Bilirubin,Total 0.3 mg/dL (0.3-1.0); Blood Urea Nitrogen 23 mg/dL (8-23); Carbon Dioxide 29 mEq/L (23-29); Chloride 103 mEq/L (98-107); Globulin 2.6 g/dL (2.4-3.5); Glucose 98 mg/dL (70-105); Osmolality,Calculated 280 (280-300); Phosphorous 2.5 mg/dL (2.7-4.5); Potassium 3.7 mEq/L (3.5-5.1); Sodium 133 mEq/L (136-145); Total Protein 5.1 g/dL (6.4-8.9)
[2021-12-15] MEDS ORDERED: Clinimix E 5%-15% SOLUTION 2,000 ML, Amino Acids 10% 0 ML with MVI, adult with vitami... IVC SCH (17:00)
[2021-12-15] MEDS: Fat Emulsion 250 ML IVPB SCH (17:26)
[2021-12-16] MEDS: Insulin LISPRO 300 UNITS/3 ML VIAL SUBQ SCH ×7 (00:57→23:36)
[2021-12-16] MEDS: Piperacillin/Tazobactam 3.375 GM in 0.9 % Sodium Chloride Mini Bag 100 ML IVPB SCH ×4 (00:58→23:38)
[2021-12-16] MEDS: *HR* Metoprolol 5 MG/5 ML VIAL IVP SCH ×5 (01:10→23:41)
[2021-12-16] MEDS: Acetaminophen IV 1,000 MG/100 ML BAG IVPB SCH ×4 (01:14→17:17)
[2021-12-16 02:39] LABS: Alanine Aminotransferase 18 Units/L (7-52); Albumin 2.5 g/dL (3.5-5.7); Albumin/Globulin Ratio 0.8 (1.1-2.2); Alkaline Phosphatase 79 Units/L (34-104); Aspartate Amino Transferase 13 Units/L (13-39); BUN/Creatinine Ratio 47 (6-26); Bilirubin,Total 0.4 mg/dL (0.3-1.0); Blood Urea Nitrogen 26 mg/dL (8-23); Calcium 8.7 mg/dL (8.6-10.3); Carbon Dioxide 28 mEq/L (23-29); Chloride 101 mEq/L (98-107); Glucose 96 mg/dL (70-105); Osmolality,Calculated 281 (280-300); Phosphorous 3.5 mg/dL (2.7-4.5); Sodium 133 mEq/L (136-145); Total Protein 5.5 g/dL (6.4-8.9)
[2021-12-16] MEDS: Fluconazole 400 MG/200 ML 400 MG/200 ML BAG IVPB SCH (08:49)
[2021-12-16] MEDS: Pantoprazole 40 MG VIAL IVP SCH (08:49)
[2021-12-16] MEDS: Nicotine 14 MG PATCH.TD24 TD SCH (08:50)
[2021-12-16 09:28] LABS: Basophils # 0.1 K/mcL (0.0-0.2); Basophils % 1.3 %; Eosinophils # 0.5 K/mcL (0.0-0.6); Eosinophils % 6.6 %; Hematocrit 26.7 % (35.3-44.9); Immature Granulocytes % 2.4 % (0-4); Lymphocytes % 14.9 %; Mean Corpuscular Hemoglobin 31.6 pg (28.0-33.3); Mean Corpuscular Volume 105.5 fL (83.0-100.0); Mean Platelet Volume 9.8 fL (9.4-12.4); Monocytes # 0.3 K/mcL (0.0-1.3); Monocytes % 4.7 %; Neutrophils # 4.9 K/mcL (1.6-8.9); Platelet Count 390 K/mcL (140-400); Red Blood Count 2.53 M/mcL (3.82-4.97); Red Cell Distribution Width 16.9 % (11.5-14.5); Segmented Neutrophils % 70.1 %
[2021-12-16] MEDS ORDERED: Clinimix E 5%-15% SOLUTION 2,000 ML with MVI, adult with vitamin K 10 ML IVC SCH (17:00)
[2021-12-16] MEDS: Fat Emulsion 250 ML IVPB SCH (17:18)
[2021-12-17] MEDS: Acetaminophen IV 1,000 MG/100 ML BAG IVPB SCH ×4 (00:05→20:56)
[2021-12-17] MEDS: Insulin LISPRO 300 UNITS/3 ML VIAL SUBQ SCH ×6 (02:11→21:00)
[2021-12-17] MEDS: *HR* Metoprolol 5 MG/5 ML VIAL IVP SCH ×3 (05:50→21:06)
[2021-12-17 08:41] LABS: Alanine Aminotransferase 14 Units/L (7-52); Albumin 2.5 g/dL (3.5-5.7); Alkaline Phosphatase 76 Units/L (34-104); Aspartate Amino Transferase 14 Units/L (13-39); BUN/Creatinine Ratio 48 (6-26); Bilirubin,Total 0.3 mg/dL (0.3-1.0); Blood Urea Nitrogen 24 mg/dL (8-23); Calcium 8.2 mg/dL (8.6-10.3); Carbon Dioxide 28 mEq/L (23-29); Chloride 100 mEq/L (98-107); Globulin 2.5 g/dL (2.4-3.5); Glucose 385 mg/dL (70-105); Magnesium 2.1 mg/dL (1.6-2.6); Osmolality,Calculated 290 (280-300); Phosphorous 3.6 mg/dL (2.7-4.5); Potassium 4.2 mEq/L (3.5-5.1); Sodium 130 mEq/L (136-145)
[2021-12-17] MEDS: Piperacillin/Tazobactam 3.375 GM in 0.9 % Sodium Chloride Mini Bag 100 ML IVPB SCH ×2 (08:46→17:04)
[2021-12-17] MEDS: Fluconazole 400 MG/200 ML 400 MG/200 ML BAG IVPB SCH (08:47)
[2021-12-17] MEDS: Nicotine 14 MG PATCH.TD24 TD SCH (08:48)
[2021-12-17] MEDS: Pantoprazole 40 MG VIAL IVP SCH (08:49)
[2021-12-17 08:53] LABS: % Iron Saturation 10 % (15-50); Iron 25 mcg/dL (50-170); Transferrin 172 mg/dL (203-362)
[2021-12-17 08:56] LABS: Ferritin 398 ng/mL (10-120)
[2021-12-17 09:01] LABS: Vitamin B12 510 pg/mL (250-1100)
[2021-12-17 12:17] LABS: Folate > 22.3 ng/mL (3.0-16.0)
[2021-12-17] MEDS ORDERED: Clinimix E 5%-15% SOLUTION 2,000 ML with MVI, adult with vitamin K 10 ML IVC SCH (17:00)
[2021-12-17] MEDS: Fat Emulsion 250 ML IVPB SCH (17:33)
[2021-12-17] MEDS: Insulin DETEMIR 100 UNIT/ML X5UNITS SUBQ SCH (20:53)
[2021-12-18] MEDS: Insulin LISPRO 300 UNITS/3 ML VIAL SUBQ SCH ×6 (00:48→21:24)
[2021-12-18] MEDS: Piperacillin/Tazobactam 3.375 GM in 0.9 % Sodium Chloride Mini Bag 100 ML IVPB SCH (01:04)
[2021-12-18] MEDS: *HR* Metoprolol 5 MG/5 ML VIAL IVP SCH ×4 (01:06→21:38)
[2021-12-18] MEDS: Acetaminophen IV 1,000 MG/100 ML BAG IVPB SCH ×5 (01:07→21:30)
[2021-12-18] MEDS: Nicotine 14 MG PATCH.TD24 TD SCH (09:04)
[2021-12-18] MEDS: Pantoprazole 40 MG VIAL IVP SCH (09:05)
[2021-12-18 09:30] LABS: Basophils # 0.1 K/mcL (0.0-0.2); Basophils % 0.7 %; Eosinophils # 0.4 K/mcL (0.0-0.6); Eosinophils % 5.6 %; Hematocrit 28.4 % (35.3-44.9); Hemoglobin 8.4 g/dL (11.5-15.4); Lymphocytes % 13.8 %; Mean Corpuscular HGB Conc 29.6 g/dL (31.6-35.5); Mean Corpuscular Volume 104.8 fL (83.0-100.0); Mean Platelet Volume 9.9 fL (9.4-12.4); Monocytes # 0.4 K/mcL (0.0-1.3); Monocytes % 4.8 %; Neutrophils # 5.4 K/mcL (1.6-8.9); Platelet Count 429 K/mcL (140-400); Red Blood Count 2.71 M/mcL (3.82-4.97); Red Cell Distribution Width 17.2 % (11.5-14.5); Segmented Neutrophils % 74.1 %; White Blood Count 7.3 K/mcL (4.3-11.1)
[2021-12-18 09:51] LABS: Alanine Aminotransferase 15 Units/L (7-52); Albumin 2.7 g/dL (3.5-5.7); Alkaline Phosphatase 88 Units/L (34-104); Aspartate Amino Transferase 16 Units/L (13-39); BUN/Creatinine Ratio 49 (6-26); Bilirubin,Total 0.3 mg/dL (0.3-1.0); Blood Urea Nitrogen 23 mg/dL (8-23); Calcium 8.5 mg/dL (8.6-10.3); Carbon Dioxide 28 mEq/L (23-29); Chloride 105 mEq/L (98-107); Globulin 2.7 g/dL (2.4-3.5); Glucose 120 mg/dL (70-105); Osmolality,Calculated 287 (280-300); Phosphorous 2.5 mg/dL (2.7-4.5); Potassium 3.7 mEq/L (3.5-5.1); Sodium 136 mEq/L (136-145); Total Protein 5.4 g/dL (6.4-8.9)
[2021-12-18] MEDS: Fat Emulsion 250 ML IVPB SCH (16:19)
[2021-12-18] MEDS ORDERED: Clinimix E 5%-15% SOLUTION 2,000 ML with MVI, adult with vitamin K 10 ML IVC SCH (17:00)
[2021-12-18] MEDS: Insulin DETEMIR 100 UNIT/ML X5UNITS SUBQ SCH (21:29)
[2021-12-19] MEDS: Insulin LISPRO 300 UNITS/3 ML VIAL SUBQ SCH ×6 (01:19→20:57)
[2021-12-19] MEDS: *HR* Metoprolol 5 MG/5 ML VIAL IVP SCH ×3 (01:24→13:16)
[2021-12-19] MEDS: Acetaminophen IV 1,000 MG/100 ML BAG IVPB SCH (04:22)
[2021-12-19] MEDS: Nicotine 14 MG PATCH.TD24 TD SCH (09:45)
[2021-12-19] MEDS: Gabapentin 100 MG CAPSULE PO SCH ×2 (16:17→20:57)
[2021-12-19] MEDS: carvediloL 6.25 MG TABLET PO SCH (17:31)
[2021-12-19 17:33] LABS: Alanine Aminotransferase 14 Units/L (7-52); Albumin 2.7 g/dL (3.5-5.7); Albumin/Globulin Ratio 0.9 (1.1-2.2); Alkaline Phosphatase 106 Units/L (34-104); Aspartate Amino Transferase 15 Units/L (13-39); BUN/Creatinine Ratio 40 (6-26); Bilirubin,Total 0.3 mg/dL (0.3-1.0); Blood Urea Nitrogen 24 mg/dL (8-23); Calcium 9.2 mg/dL (8.6-10.3); Carbon Dioxide 28 mEq/L (23-29); Chloride 103 mEq/L (98-107); Globulin 3.1 g/dL (2.4-3.5); Glucose 95 mg/dL (70-105); Magnesium 2.1 mg/dL (1.6-2.6); Osmolality,Calculated 284 (280-300); Phosphorous 2.9 mg/dL (2.7-4.5); Potassium 4.3 mEq/L (3.5-5.1); Sodium 135 mEq/L (136-145); Total Protein 5.8 g/dL (6.4-8.9); Triglycerides 88 mg/dL (< 150)
[2021-12-20] MEDS: Insulin LISPRO 300 UNITS/3 ML VIAL SUBQ SCH ×3 (01:22→09:32)
[2021-12-20] MEDS: carvediloL 6.25 MG TABLET PO SCH ×2 (09:37→16:01)
[2021-12-20] MEDS: Gabapentin 100 MG CAPSULE PO SCH ×3 (09:38→20:50)
[2021-12-20] MEDS: Nicotine 14 MG PATCH.TD24 TD SCH (09:38)
[2021-12-21 07:56] LABS: Basophils # 0.1 K/mcL (0.0-0.2); Basophils % 1.5 %; Eosinophils # 0.2 K/mcL (0.0-0.6); Eosinophils % 3.3 %; Hematocrit 28.3 % (35.3-44.9); Hemoglobin 8.6 g/dL (11.5-15.4); Immature Granulocytes % 0.5 % (0-4); Lymphocytes # 1.2 K/mcL (0.6-4.6); Lymphocytes % 20.2 %; Mean Corpuscular HGB Conc 30.4 g/dL (31.6-35.5); Mean Corpuscular Hemoglobin 31.7 pg (28.0-33.3); Mean Corpuscular Volume 104.4 fL (83.0-100.0); Mean Platelet Volume 9.8 fL (9.4-12.4); Monocytes # 0.3 K/mcL (0.0-1.3); Monocytes % 5.7 %; Platelet Count 486 K/mcL (140-400); Red Blood Count 2.71 M/mcL (3.82-4.97); Red Cell Distribution Width 17.2 % (11.5-14.5); Segmented Neutrophils % 68.8 %; White Blood Count 5.8 K/mcL (4.3-11.1)
[2021-12-21 08:14] LABS: BUN/Creatinine Ratio 53 (6-26); Blood Urea Nitrogen 29 mg/dL (8-23); Calcium 8.7 mg/dL (8.6-10.3); Carbon Dioxide 28 mEq/L (23-29); Chloride 103 mEq/L (98-107); Glucose 110 mg/dL (70-105); Osmolality,Calculated 288 (280-300); Potassium 4.1 mEq/L (3.5-5.1); Sodium 136 mEq/L (136-145)
[2021-12-21 08:39] VITALS: BP 147/77; PULSE 89; TEMP 97.8; O2SAT 99
[2021-12-21] MEDS: Gabapentin 100 MG CAPSULE PO SCH (08:53)
[2021-12-21] MEDS: Nicotine 14 MG PATCH.TD24 TD SCH (08:53)
[2021-12-21] MEDS: carvediloL 6.25 MG TABLET PO SCH (08:53)
== END 2021-12-21 11:58 | disposition home health service (06) | DRG 853 ==
LOC: 3ANU 12:34 → EMEROOARM 12:34 → 3ANU 17:33 → SUATTDRO 18:46 → ICNU 12-10 20:18 → 3ANU 12-11 16:33
PROVIDERS: ADMIT Hospitalist; ATTEND Internal Medicine